=== PATIENT | male | born 1990 | race Two or more races ===

== ENCOUNTER 2022-02-03 13:40 | Emergency (ER) | payer OTHER, SELFPAY ==
--- NOTE | 2022-02-03 14:13 | HMH.EDUTC ---
[facility] [place] Impression: Abdominal abscess, Perforated bowel, Diverticulitis Disposition: Xfer Short-Term Hosp Condition on Discharge: Fair Instructions: DI for Acute Abdominal Pain Referrals: Provider,Referral, [Primary Care Provider] - Forms: Transfer Record - ED Medical Decision Making - Medical Records Medical records reviewed: No: I reviewed the patient's medical records. - Julius Inquiry Pt receiving controlled substance: No Vital Signs: 02/03/22 14:21 02/03/22 16:05 02/03/22 16:08 Temperature 101.9 F H 101 F H Temperature Source Oral Oral Pulse Rate 104 H Pulse Rate [Left] 120 H 108 H Respiratory Rate 16 16 Blood Pressure 155/98 H Blood Pressure [Right Arm] 160/99 H 155/98 H Blood Pressure Mean 116 Blood Pressure Mean [Right Arm] 119 117 02 Sat by Pulse Oximetry 97 98 97 Oxygen Delivery Method Room Air 02/03/22 18:38 Temperature 100.7 F H Temperature Source Pulse Rate 102 H Pulse Rate [Left] Respiratory Rate 16 Blood Pressure 141/87 H Blood Pressure [Right Arm] Blood Pressure Mean Blood Pressure Mean [Right Arm] 02 Sat by Pulse Oximetry Oxygen Delivery Method - Lab Data Lab results reviewed: Yes: I reviewed the patient's lab results. Lab Results 02/03/22 14:24: Urine Color Tracy, Urine Appearance Clear, Urine pH 6.0, Ur Specific [place] >= 1.030, Urine Protein 2+, Urine Glucose (UA) Negative, Urine Ketones Negative, Urine Blood 3+, Urine Nitrate Negative, Urine Bilirubin 1+ A, Urine Urobilinogen 1, Ur Leukocyte Esterase Negative 02/03/22 14:30: WBC 19.1 H, RBC 5.31, Hgb 16.0, Hct 47.7, MCV 89.7, MCH 30.0, MCHC 33.5, RDW 14.7, Plt Count 245, MPV 7.9, Neut % (Auto) 88.7 H, Lymph % (Auto) 8.3 L, [place] % (Auto) 2.5, Eos % (Auto) 0.1, Baso % (Auto) 0.4, Neut # (Auto) 17.0 H, Lymph # (Auto) 1.6, [place] # (Auto) 0.5, Eos # (Auto) 0.0, Baso # (Auto) 0.1, Total Counted 100, Neutrophils % (Manual) 89 H, Band Neutrophils % 1.0, Lymphocytes % (Manual) 7 L, Monocytes % (Manual) 3, Platelet Estimate Normal, RBC Morphology Normal 02/03/22 14:30: Sodium 135 L, Potassium 4.0, Chloride 96 L, Carbon Dioxide 30, Anion Gap 13.0, BUN 12, Creatinine 0.90, Estimated Creat Clear 109, Estimated GFR 97, Est GFR ( Amer) 118, Glucose 121 H, Calcium 9.5, Amylase 82, Lipase 49 02/03/22 14:30: Total Bilirubin 1.5 H, Direct Bilirubin 0.5 H, Conjugated Bilirubin 0.0, Indirect Bilirubin 1.0 H, Unconjugated Bilirubin 1.0, AST 27, ALT 46, Alkaline Phosphatase 99, Total Protein 7.9, Albumin 4.3 02/03/22 16:20: Lactate 0.9 02/03/22 16:20: SARS-CoV-2 (PCR) Detected A, Influenza A Untype (PCR) Not detected, Influenza Type B (PCR) Not detected Result diagrams: 02/03/22 14:30 02/03/22 14:30 Orders (Tests/Meds): ED MEDICATIONS Discontinued Medications Generic Name Dose Route Start Last Admin Trade Name Freq PRN Reason Stop Dose Admin Acetaminophen 650 mg 02/03/22 14:46 02/03/22 14:47 Acetaminophen 325mg Tab PO 02/03/22 14:47 650 mg ONCE ONE Administration Lactated Ringer's 1,000 mls @ 999 mls/hr 02/03/22 16:15 02/03/22 17:19 Lactated Ringer's 1000 Ml Bag IV 02/03/22 17:15 999 mls/hr .Q1H1M HANK Administration Piperacillin Sod/Tazobactam 50 mls @ 100 mls/hr 02/03/22 16:08 02/03/22 16:08 Sod 3.375 gm/ Sodium Chloride IV 02/03/22 16:37 100 mls/hr ONCE ONE Administration Iopamidol 75 ml 02/03/22 16:25 02/03/22 16:26 Iopamidol-370 (76%);100ml Bottle IV 02/03/22 16:26 75 ml ONCE ONE Administration Sodium Chloride 10 ml 02/03/22 16:25 02/03/22 16:26 Sodium Chloride 0.9% 10ml Syr (Rad Only) IV 02/03/22 16:26 10 ml ONCE ONE Administration ORDERS Category Date Time Status Blood Culture Stat Micro 02/03/22 16:41 [place] [facility] [place] - General Stated complaint: Stomach pain Time Seen by Provider: 02/03/22 14:13 - History of Present Illness Provider Complaint: He states that he has had abdominal pain for the past 2 days.
[2022-02-03 14:21] VITALS: BP 160/99; PULSE 120; RESP 16; TEMP 38.8; O2SAT 97; BMI 24.9
--- NOTE | 2022-02-03 14:42 | XR_ITS ---
FINAL REPORT CLINICAL HISTORY: abdominal pain FINDINGS: TWO-VIEW ABDOMEN There are multiple air-filled bowel loops in a nonspecific pattern with scattered air-fluid levels on the upright view, could represent ileus or enteritis. IMPRESSION: Ileus versus enteritis. Reviewed, Interpreted and Dictated by Cristian Decker III, MD Transcribed by Maria Esther Peterson Authenticated and [facility][1]
[2022-02-03 14:48] LABS: Apearance,Urine Clear (Clear); Blood, Urine 3+ (Negative); Color,Urine Amber (Yellow); Glucose,Urine (UA) Negative (Negative); Ketones,Urine Negative (Negative); Protein,Urine 2+ (Negative); Specific Gravity, Urine >= 1.030 (1.005-1.030)
[2022-02-03 14:49] LABS: Bilirubin,Urine 1+ (Negative); UTC Leukocyte Esterase,Urine Negative (Negative); UTC Nitrate,Urine Negative (Negative); Urobilinogen,Urine 1 EU/dl (0.2)
[2022-02-03 15:31] LABS: Basophils # 0.1 K/mm3 (0-0.2); Basophils % 0.4 % (0.1-2.0); Eosinophils % 0.1 % (0.1-12.0); Hematocrit 47.7 % (42.0-52.0); Lymphocytes # 1.6 K/mm3 (0.7-4.5); Lymphocytes % 8.3 % (10-50); Mean Corpuscular HGB Conc 33.5 g/dL (31.8-35.4); Mean Corpuscular Volume 89.7 fl (80-94); Mean Platelet Volume 7.9 fl (7.4-10.4); Monocytes # 0.5 K/mm3 (0.1-1.0); Monocytes % 2.5 % (1.7-9.3); Neutrophils % 88.7 % (37.0-80.0); Platelet Count 245 K/mm3 (142-424); Red Blood Count 5.31 M/mm3 (4.60-6.20); Red Cell Distribution Width 14.7 % (11.5-17.5); White Blood Count 19.1 K/mm3 (4.8-10.8)
[2022-02-03 15:46] LABS: MANUAL DIFFERENTIAL MANUAL DIFFERENTIAL (MANUAL DIFF)
[2022-02-03 15:57] LABS: Amylase 82 U/L (30-110); Blood Urea Nitrogen 12 mg/dl (9-20); Calcium 9.5 mg/dl (8.4-10.2); Carbon Dioxide 30 mmol/L (22.0-30.0); Chloride 96 mmol/L (98-107); Creatinine Clearance Estimated 109 mL/min (50-200); Estimated Glomerular Filt Rate 97 ml/min (>60); GFR (African American) 118 ML/MIN (>60); Glucose 121 mg/dl (74-100); Lipase 49 U/L (23-300); Sodium 135 mmol/L (136-145)
[2022-02-03 16:05] VITALS: BP 155/98; PULSE 104; O2SAT 98
--- NOTE | 2022-02-03 16:06 | CT_ITS ---
PROCEDURE INFORMATION: Exam: CT Abdomen And Pelvis With Contrast Exam date and time: 02/03/2022 4:20 PM Age: 31 years old Clinical indication: Abdominal pain; Additional info: Diffuse tender abdomen everywhere except ruq TECHNIQUE: Imaging protocol: Computed tomography of the abdomen and pelvis with contrast. Radiation optimization: All CT scans at this facility use at least one of these dose optimization techniques: automated exposure control; mA and/or kV adjustment per patient size (includes targeted exams where dose is matched to clinical indication); or iterative reconstruction. Contrast material: ISOVUE; Contrast volume: 75 ml; Contrast route: IV; COMPARISON: CR XR ABDOMEN MIN 2V 02/03/2022 2:44 PM FINDINGS: Lungs: Minimal regions of parenchymal scarring left lung base. Subsegmental atelectasis right lung base. Liver: Hepatic steatosis. Gallbladder and bile ducts: Normal. No calcified stones. No ductal dilation. Pancreas: Normal. No ductal dilation. Spleen: Normal. No splenomegaly. Adrenal glands: Normal. No mass. Kidneys and ureters: Normal. No hydronephrosis. Stomach and bowel: Prominent regions of stranding of mesenteric fat in association with proximal small bowel loops in the mid abdomen as well as continuing distally to the pelvis with partial involvement of the sigmoid colon. The small bowel loops are mildly thickened. Fluid is demonstrated within the majority of the small as well as large bowel loops. There is a focal elongated fluid collection measuring 5.2 cm in length adjacent to an the inflamed bowel loop. Small collections of air are present in this region. Findings may correspond to combined changes of peritonitis with possible small perforation. A focal developing abscess could not be entirely excluded. Findings demonstrated on series 1002, image number 52, series 3 image number 75 through 82. Colonic diverticulosis. There is associated inflammation extending in to the pelvis, in association with the sigmoid colon. This is less pronounced however is adjacent to more markedly inflamed small bowel loops immediately superior to this region. Appendix: See Intraperitoneal space finding. Intraperitoneal space: Mesenteric stranding with a small amount of peritoneal fluid present in the right pericolic gutter just proximal to and in the region of the appendix. The appearance is suggestive of secondary appendiceal inflammation rather than primary appendicitis. Clinically correlate. A small amount of peritoneal fluid is also present extending into the left paracolic gutter. Small collections of free air demonstrated superiorly in the region of the liver and spleen. Vasculature: Unremarkable. No abdominal aortic aneurysm. Lymph nodes: Unremarkable. No enlarged lymph nodes. Urinary bladder: Unremarkable as visualized. Reproductive: Unremarkable as visualized. Bones/joints: Unremarkable. No acute fracture. Soft tissues: Unremarkable. IMPRESSION: 1. Prominent regions of edematous change in association with proximal small bowel loops as well as involving portions of the sigmoid colon and periappendiceal regions. Findings compatible with peritonitis. 2. Inflammatory changes most pronounced in association with small bowel loops as described above. Findings compatible with enteritis. Superimposed findings suggesting small bowel perforation with associated 5.2 cm abscess collection. 3. Intra-abdominal free air. 4. Diverticulosis with associated mild changes of diverticulitis. Findings most likely secondary to the above described inflammatory process. 5. Periappendiceal inflammatory changes. Findings most likely secondary to a
[2022-02-03 16:07] LABS: Lymphocytes % 7 % (10-50); Monocytes % 3 % (2-9); Neutrophils % 89 % (42-76); Platelet Estimate Normal; RBC Morphology Normal; Total Cells Counted 100
[2022-02-03 16:08] VITALS: BP 155/98; PULSE 108; RESP 16; TEMP 38.3; O2SAT 97; BMI 33.2
--- NOTE | 2022-02-03 16:08 | HMH.EDGENADL ---
ED Disposition Clinical Impression: Abdominal abscess, Perforated bowel, Diverticulitis Disposition: Xfer Short-Term Hosp Condition on Discharge: Fair Instructions: DI for Acute Abdominal Pain Referrals: Provider,Referral, [Primary Care Provider] - Forms: Transfer Record - ED - Critical Care Critical Care Time: No Attestation: On 02/03/22, the high probability of a clinically significant, sudden or life threatening deterioration of the following system(s) required my full and direct attention, intervention and personal management. The time I documented below is in addition to time spent performing reported procedures but includes the following listed in this critical care notation. Medical Decision Making - Julius Inquiry Pt receiving controlled substance: No Vital Signs: 02/03/22 14:21 02/03/22 16:05 02/03/22 16:08 Temperature 101.9 F H 101 F H Temperature Source Oral Oral Pulse Rate 104 H Pulse Rate [Left] 120 H 108 H Respiratory Rate 16 16 Blood Pressure 155/98 H Blood Pressure [Right Arm] 160/99 H 155/98 H Blood Pressure Mean 116 Blood Pressure Mean [Right Arm] 119 117 02 Sat by Pulse Oximetry 97 98 97 Oxygen Delivery Method Room Air - Lab Data Lab Results 02/03/22 14:24: Urine Color Tracy, Urine Appearance Clear, Urine pH 6.0, Ur Specific [place] >= 1.030, Urine Protein 2+, Urine Glucose (UA) Negative, Urine Ketones Negative, Urine Blood 3+, Urine Nitrate Negative, Urine Bilirubin 1+ A, Urine Urobilinogen 1, Ur Leukocyte Esterase Negative 02/03/22 14:30: WBC 19.1 H, RBC 5.31, Hgb 16.0, Hct 47.7, MCV 89.7, MCH 30.0, MCHC 33.5, RDW 14.7, Plt Count 245, MPV 7.9, Neut % (Auto) 88.7 H, Lymph % (Auto) 8.3 L, [place] % (Auto) 2.5, Eos % (Auto) 0.1, Baso % (Auto) 0.4, Neut # (Auto) 17.0 H, Lymph # (Auto) 1.6, [place] # (Auto) 0.5, Eos # (Auto) 0.0, Baso # (Auto) 0.1, Total Counted 100, Neutrophils % (Manual) 89 H, Band Neutrophils % 1.0, Lymphocytes % (Manual) 7 L, Monocytes % (Manual) 3, Platelet Estimate Normal, RBC Morphology Normal 02/03/22 14:30: Sodium 135 L, Potassium 4.0, Chloride 96 L, Carbon Dioxide 30, Anion Gap 13.0, BUN 12, Creatinine 0.90, Estimated Creat Clear 109, Estimated GFR 97, Est GFR ( Amer) 118, Glucose 121 H, Calcium 9.5, Amylase 82, Lipase 49 02/03/22 14:30: Total Bilirubin 1.5 H, Direct Bilirubin 0.5 H, Conjugated Bilirubin 0.0, Indirect Bilirubin 1.0 H, Unconjugated Bilirubin 1.0, AST 27, ALT 46, Alkaline Phosphatase 99, Total Protein 7.9, Albumin 4.3 02/03/22 16:20: Lactate 0.9 02/03/22 16:20: SARS-CoV-2 (PCR) Detected A, Influenza A Untype (PCR) Not detected, Influenza Type B (PCR) Not detected Result diagrams: 02/03/22 14:30 02/03/22 14:30 Orders (Tests/Meds): ED MEDICATIONS Discontinued Medications Generic Name Dose Route Start Last Admin Trade Name Mikoq PRN Reason Stop Dose Admin Acetaminophen 650 mg 02/03/22 14:46 02/03/22 14:47 Acetaminophen 325mg Tab PO 02/03/22 14:47 650 mg ONCE ONE Administration Lactated Ringer's 1,000 mls @ 999 mls/hr 02/03/22 16:15 02/03/22 17:19 Lactated Ringer's 1000 Ml Bag IV 02/03/22 17:15 999 mls/hr .Q1H1M HANK Administration Piperacillin Sod/Tazobactam 50 mls @ 100 mls/hr 02/03/22 16:08 02/03/22 16:08 Sod 3.375 gm/ Sodium Chloride IV 02/03/22 16:37 100 mls/hr ONCE ONE Administration Iopamidol 75 ml 02/03/22 16:25 02/03/22 16:26 Iopamidol-370 (76%);100ml Bottle IV 02/03/22 16:26 75 ml ONCE ONE Administration Sodium Chloride 10 ml 02/03/22 16:25 02/03/22 16:26 Sodium Chloride 0.9% 10ml Syr (Rad Only) IV 02/03/22 16:26 10 ml ONCE ONE Administration ORDERS Category Date Time Status Blood Culture Stat Micro 02/03/22 16:30 Ordered Urine Culture Stat Micro 02/03/22 14:13 Received Medical Decision Narrative: In summary this is a 31-year-old male with no pertinent past medical history who presents to the emergency department for evaluation of cute onset abd
[2022-02-03 16:19] LABS: Alanine Aminotransferase 46 U/L (12-78); Albumin Level 4.3 g/dl (3.5-5.0); Alkaline Phosphatase 99 U/L (38-126); Aspartate Amino Transferase 27 U/L (17-59); Bilirubin,Direct 0.5 mg/dl (0.0-0.4); Bilirubin,Total 1.5 mg/dl (0.2-1.3); Total Protein,Serum 7.9 g/dl (6.3-8.2)
--- NOTE | 2022-02-03 16:23 | PC.NURSE ---
pt to radiology via
[2022-02-03 16:34] LABS: Influenza A, PCR Not Detected (NotDetected); Influenza B, PCR Not Detected (NotDetected)
[2022-02-03 16:44] LABS: Lactic Acid 0.9 mmol/L (0.7-2.1)
[2022-02-03 16:59] LABS: Coronavirus 19, PCR Detected (NotDetected)
--- NOTE | 2022-02-03 17:05 | PC.NURSE ---
LILLIE called and is speaking with our ER MD regarding this patient
--- NOTE | 2022-02-03 17:08 | PC.NURSE ---
Dr. Alina gonsalves for ER MD
--- NOTE | 2022-02-03 17:09 | PC.NURSE ---
BRADY CANCINO speaking with Dr. Fuller at this time
--- NOTE | 2022-02-03 17:16 | PC.NURSE ---
Contacting [facility] general surgery for possible patient transfer
--- NOTE | 2022-02-03 17:18 | PC.NURSE ---
Sophie in Radiology notified to [facility] with [facility]
--- NOTE | 2022-02-03 17:30 | PC.NURSE ---
Notified radiology to burn images on disc, spoke with Sophie
--- NOTE | 2022-02-03 17:54 | PC.NURSE ---
BRADY CANCINO speaking with [facility] MDs
--- NOTE | 2022-02-03 18:04 | PC.NURSE ---
Called [facility] and spoke with Karla regarding patient transfer to ER; she reports once the other truck is off the run they are on, they will be up to get the patient
[2022-02-03 18:38] VITALS: BP 141/87; PULSE 102; RESP 16; TEMP 38.2; O2SAT 96
--- NOTE | 2022-02-03 18:41 | PC.NURSE ---
[facility] here to transfer patient to ER
== END 2022-02-03 18:45 | disposition short-term general hospital (02) ==
LOC: UTC 13:48 → ER 15:57
PROVIDERS: Nurse Practitioner Family; Emergency Provider Emergency Medicine
DX: U07.1 COVID-19 (principal); K65.1 Peritoneal abscess; R10.11 Right upper quadrant pain; R10.31 Right lower quadrant pain; R10.32 Left lower quadrant pain; R19.7 Diarrhea, unspecified; R00.0 Tachycardia, unspecified; D72.829 Elevated white blood cell count, unspecified; R53.81 Other malaise; R50.9 Fever, unspecified
CPT/HCPCS: 74019; 74177; 80048; 80076; 81003; 82150; 83605; 83690; 85007; 85025; 87040; 87086; 96361; 96374; 99285; C9803; J2543; Q9967; U0003; U0005